=== PATIENT | male | born 1995 | race Asian ===

== ENCOUNTER 2022-04-29 12:31 | Inpatient (IN) ==
[2022-04-29 14:22] LABS: Hematocrit (blood only) 48.6 % (40.1-51.0); Mean Corpuscular Hemoglobin 29.6 pg (25.0-34.0); Mean Corpuscular Hgb Conc 35.1 g/dL (32.0-36.0); Mean Corpuscular Volume 84.5 fL (80.0-100.0); Mean Platelet Volume 10.3 fL (9.4-12.4); Platelet Count 246 K/uL (130-400); RDW Coefficient of Variation 12.6 % (11.5-14.5); RDW Standard Deviation 38.4 fL (36.4-46.3); Red Blood Count 5.75 M/uL (4.63-6.08); White Blood Count 14.28 K/ul (4.8-10.8)
[2022-04-29 14:23] LABS: Basophils # (auto) 0.11 K/uL (0-0.2); Basophils % (auto) 0.8 %; Eosinophils % (auto) 0.7 %; Immature Granulocytes # (auto) 0.09 K/uL (0.00-0.02); Immature Granulocytes % (auto) 0.6 %; Lymphocytes # (auto) 1.24 K/uL (1.2-3.4); Lymphocytes % (auto) 8.7 %; Monocytes # (auto) 0.82 K/uL (0.24-0.82); Monocytes % (auto) 5.7 %; Neutrophils # (auto) 11.92 K/uL (1.4-6.5); Neutrophils % (auto) 83.5 %
[2022-04-29 14:34] LABS: Carbon Dioxide 22 mmol/L (21-32)
[2022-04-29 14:51] LABS: Alanine Aminotransferase 174 U/L (7-52); Albumin Globulin Ratio 1.4 (0.9-2); Alkaline Phosphatase 68 U/L (34-104); Aspartate Aminotransferase 52 U/L (13-39); BUN Creatinine Ratio 15.4 (10-20); Bilirubin,Total 1.4 mg/dl (0.2-1.0); Blood Urea Nitrogen 10 mg/dl (6-23); Calcium 9.7 mg/dl (8.5-10.1); Chloride 104 mmol/L (98-107); Creatinine Clr Calc Pharmacy 170.7 ml/min; Est GFR (African American) > 150.0 ml/min; Est GFR (Non-African American) 133.3 ml/min; Globulin 3.5 gm/dl (2.5-4.0); Glucose 108 mg/dl (70-99(Fasting)); Lipase 310 U/L (11-82); Potassium 3.8 mmol/L (3.5-5.1); Sodium 138 mmol/L (136-145); Total Protein 8.5 gm/dl (6.0-8.3)
[2022-04-29] MEDS ORDERED: ONDANSETRON INJ 2 MG/ML 2 ML VIAL IV STA (16:01)
[2022-04-29] MEDS ORDERED: MoRPHine SULFATE 4 MG/ML 1 ML CARP\\VIAL IV STA (16:01)
[2022-04-29] MEDS ORDERED: SODIUM CHLORIDE 0.9% 1000ML 2,000 ML IV ONE (16:01)
[2022-04-29 16:45] LABS: Anion Gap 1.4 (3-11)
--- NOTE | 2022-04-29 16:52 | Ultrasound Report ---
US gallbladder HISTORY: 26 years-old Male ruq epigastric pain . Acute right upper quadrant abdominal pain COMPARISON: None TECHNIQUE: Multiple real-time sonographic images of the abdominal right upper quadrant were obtained assessing grayscale appearance and color flow FINDINGS: The visualized pancreas is unremarkable. The liver measures up to 18.1 cm in length and demonstrates increased echogenicity without hepatic mass or marginal nodularity. Normal common bile duct measures 4 mm. Gallbladder sludge without shadowing cholelithiasis, wall thickening or pericholecystic fluid. Negative sonographic Correia's sign. The imaged right kidney is unremarkable without hydronephrosis. IMPRESSION: 1. Gallbladder sludge without cholelithiasis or sonographic evidence of acute cholecystitis. 2. No biliary ductal dilation. 3. Mildly increased echogenicity of the liver may be technical or represent mild hepatic steatosis. ACT 112: Negative or not required by law. The above report was generated using voice recognition software. It may contain grammatical, syntax o r spelling errors. Electronically signed by: Baudilio Shea M.D. 04/29/2022 4:51 PM
--- NOTE | 2022-04-29 17:19 | XRay Report ---
XR abdomen 2V w PA chest HISTORY: 26 years-old Male ruq epigastric pain . Right upper quadrant abdominal pain COMPARISON: Gallbladder ultrasound of same day TECHNIQUE: PA view of the chest with erect and supine views of the abdomen FINDINGS: Cardiomediastinal and hilar silhouettes are within normal limits. No pneumothorax, pleural effusion, airspace consolidation or overt pulmonary edema. Bones of the chest appear grossly intact. No pneumatosis or pneumoperitoneum. Bowel gas pattern is nonobstructive. There is mild gaseous disten tion of the large bowel. No urolith identified. No acute fracture. IMPRESSION: 1. No acute processes of the chest. 2. Nonobstructive bowel gas pattern. 3. Mild gaseous distention of the colon. ACT 112: Negative or not required by law. The above report was generated using voice recognition software. It may contain grammatical, syntax o r spelling errors. Electronically signed by: Baudilio Shea M.D. 04/29/2022 5:18 PM
--- NOTE | 2022-04-29 17:47 | History & Physical Report ---
Date of Service April 29, 2022 Assessment & Plan (1) Pancreatitis: Plan: Hypertriglyceride Pancreatitis History of hypertriglyceridemia pancreatitis several years ago - CT-A/P: IMPRESSION: 1. Fat stranding and pancreatic edema is noted compatible with acute pancreatitis. 2. Borderline prominence of the bladder, correlation for cystitis is recommended. - +Epigastric pain, RUQ pain. No LUQ pain/rebound - Lipase 310 US-GB: 1. Gallbladder sludge without cholelithiasis or sonographic evidence of acute cholecystitis. 2. No biliary ductal dilation. 3. Mildly increased echogenicity of the liver may be technical or represent mild hepatic steatosis. - CXR: naf. Afebrile, RR 18, mildly tachycardic Modified Mo for score 0 points - Sample overtly lipemic on collection. Rerun 2302. Hypertrig pancreatitis: Insulin drip 0.1 units/kg/h, titrate dextrose drip with potassium to prevent hypoglycemia. Triglycerides every 12 hours. Stop IV insulin when triglyceride levels less than 500. If patient does not respond or clinically worsens would require transfer for plasmapheresis. - May titrate insulin up to 0.3units/kg/hr if inadequate respone - BMP q4h Transaminitis, ?2/2 hypertriglyceridemia with steasosis vs stone T bili 1.4, AST 52, ALT 174. ?Hepatic steatosis due to high triglycerides, etio includes choledocholithiasis no CBD dilation is noted on gb above MRCP pending to r/o stone/ductal pathology Hypertriglyceridemia - Hold outpatient fish oil - Recommend gemfibrozil 600mg BID and dietary fat restriction on dc DVT prophylaxis: SCDs, low risk Diet: N.p.o. Disposition: PCU for insulin protocol CODE STATUS: Full code History of Present Illness Primary Care Provider: [facility] Midabdomen/LUQ abdominal pain x1 day. Gradually increasing from /10 and now 8/10. Keanu down improves pain a little, otherwise no remitting factors. No attempted tx. Decreased appetite, not sure if eating makes it worse or not. Takes fish oil for 1 prior episode of pancreatitis ?genetic high rigs >2000 many years ago, was seen in [place] and does not have records. Tx with insulin, did not need plasma exchange at that time. At first was on 'a form of some pain medicine then some triglyceride medicine but I'm not sure the name, stopped it after one month and went to fish oil.' In the last month has not had any change in diet. notes he did have some greasy food (beef meal) a few days ago, but nothing very greasy or out of the ordinary. Does not see a PCP or have blood work. 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 No fevers, has been cold but no chills. Peeing normally no pain. BMs daily, no bleeding or melena. Brown in color, no recent change. No history of gallbladder stones. Denies family history of gallbladder stones, thinks he has a family history of high triglycerides (report he was told this after his prior pancreatitis). Medical History: Reviewed. No medical problems other than high trigs and hx of pancreatitis. Medications: Reviewed Surgical History: Reviewed Allergies: Reviewed Social History:No tobacco or alcohol use. No recreational drug use. No recent alcohol use at all per pt. Code Status: In an emergency decision maker fani bakerer Jamari #[phone]. Full Code Allergies Allergy/AdvReac Type Severity Reaction Status Date / Time pollen extracts Allergy Intermediate ITCHY Verified 04/29/22 17:47 EYES, SNEEZING, CONGESTION Home Medications Medication Instructions Recorded Confirmed Type omega 3-ddr-nbq-fish oil 1,000 mg 1 cap PO DAILY 04/29/22 04/29/22 History (120 mg-180 mg) capsule (Fish Oil) Past Med/Surg History Medical History Hypertriglyceridemia No pertinent family history Pancreatitis Surgical History No pertinent past surgical history Social History Smoking Status: Never smoker Hx Alcohol Use: No Hx Substance Use: No Preferred Language: Lao Communication Ability: Effective Tire Duster Required: No Beliefs That Will Affect Care: None Current Living Situation: Other Feels Safe at Home: Yes Safety Concerns: Feels Safe At This Time Review of Systems Review of Systems: All systems reviewed & are unremarkable except as noted in Subjective Physical Exam Physical Exam: General: A&Ox3. NAD. Cooperative. Skin warm/dry HEENT: Atraumatic, normocephalic. Vision/hearing intact. PERLAA. Pulm: CTAB A&P. -wheezes, -rales, -rhonchi. Symmetrical chest rise. No increased work of breathing. No respiratory distress. Cardiac: RRR, -mrg. Radial pulses intact and symmetrical. Abdominal: RUQ and epigastric TTP. No LUQ TTP. No rebound/guarding. Ext: Warm, dry. 5/5 waredresser strength and ankle dorsi/plantarflexion bilat. Sensation to soft touch intact in hands and feet bilat. Results & Data Results & Data ([facility]) Vital Signs (Past 12 Hours) Vital Signs Temp Pulse Pulse Resp BP BP Pulse Ox 04/29/22 17:09 96 H 18 134/80 96 04/29/22 13:08 36.3 C L 102 H 20 119/74 95 O2 Del Method 04/29/22 17:09 Room Air 04/29/22 13:08 Room Air PG Care Time/CCT Total # of Minutes Spent Total Time Spent with Patient: Total time spent is greater than 50% in coordination of care (as documented) at patient's floor/unit and/or counseling patient: Coding Level of Care Code 36319 Initial Inpt Care Lvl 3 Diagnoses Pancreatitis K85.90 Acute pancreatitis complication: unspecified Chronicity: acute Pancreatitis type: unspecified pancreatitis type (1) Pancreatitis Acute pancreatitis complication: unspecified Chronicity: acute Pancreatitis type: unspecified pancreatitis type Qualified Code(s): K85.90 - Acute pancreatitis without necrosis or infection, unspecified
--- NOTE | 2022-04-29 17:59 | Emergency Department Note ---
History of Present Illness General Chief Complaint: Abdominal Pain Stated Complaint: ABDOMINAL PAIN Time Seen by Provider: 04/29/22 16:01 History of Present Illness Provider Complaint: abdominal pain Onset (ago): 1 day(s) Pain Consistency: constant Location: epigastric Radiation: RUQ Severity: moderate Maximum Pain Intensity: 7 Current Pain Intensity: 7 Quality: + stabbing and + sharp Relieved By: + nothing Exacerbated By: + nothing Context: + history of similar episodes (Patient reports history of pancreatitis. Patient states he was diagnosed with pancreatitis in [place]. He states they thought the cause of the pancreatitis was his elevated triglycerides.); no foreign travel, no possible food poisoning, no sick contacts, no recent antibiotic use, no recent surgery/procedure or no recent injury Associated Symptoms: + nausea and + vomiting; no diarrhea, no fever, no chills, no constipation, no dysuria, no hematemesis, no hematochezia, no melena, no hematuria, no anorexia, no syncope, no headache, no neck pain, no back pain, no chest pain and no weakness Home Medications Medication Instructions Recorded Confirmed Type omega 6-ibn-xqt-fish oil 1,000 mg 1 cap PO DAILY 04/29/22 04/29/22 History (120 mg-180 mg) capsule (Fish Oil) Allergies Allergy/AdvReac Type Severity Reaction Status Date / Time pollen extracts Allergy Intermediate ITCHY Verified 04/29/22 17:47 EYES, SNEEZING, CONGESTION Past Med/Surg History Medical History Hypertriglyceridemia No pertinent family history Pancreatitis Surgical History No pertinent past surgical history Social History Smoking Status: Never smoker Hx Alcohol Use: No Hx Substance Use: No Preferred Language: Jamaican Communication Ability: Effective Soft Tile Setter Required: No Beliefs That Will Affect Care: None Current Living Situation: Other Feels Safe at Home: Yes Safety Concerns: Feels Safe At This Time Review of Systems A total of 10 systems reviewed and were otherwise negative Physical Exam Vital Signs: Vital Signs - 24 hr 04/29/22 13:08 04/29/22 17:09 04/29/22 18:46 Temperature 36.3 C L Temperature Source Temporal Artery Sc an Pulse Rate 102 H Pulse Rate [Apical ] 96 H 93 H Respiratory Rate 20 18 20 Respiratory Effort / Characteristics Non-Labored Non-Labored Respiratory Depth Normal Normal Blood Pressure 119/74 Blood Pressure [Ri ght Arm] 134/80 121/78 Blood Pressure Bonita n 89 Blood Pressure Bonita n [Right Arm] 98 92 Pulse Oximetry 95 96 98 Oxygen Delivery Me thod Room Air Room Air Room Air Sepsis Recent Feve r Within 48 Hours No Sepsis New/Unexpla ined Change in Men mario alberto Status N/A Sepsis Action Take n by Nursing No Action Required Physical Exam: Physical Exam GENERAL: He is oriented to person, place, and time. He appears well-developed and well-nourished. He does not appear distressed. HENT: Exam performed. - Head: Normocephalic and atraumatic. - Right Ear: External ear normal. No mastoid tenderness. - Left Ear: External ear normal. No mastoid tenderness. - Mouth/Throat: The oropharynx is clear and moist. No trismus in the jaw. No dental abscesses or uvula swelling. No oropharyngeal exudate or tonsillar abscesses. EYES: Conjunctivae and EOM are normal. Pupils are equal, round, and reactive to light. Right eye exhibits no discharge. Left eye exhibits no discharge. No scleral icterus. NECK: Normal range of motion. Neck supple. No JVD present. No spinous process tenderness present. No carotid bruit present. No rigidity. No tracheal deviation and normal range of motion present. No Brudzinski's sign and no Kernig's sign noted. CV: Normal rate, regular rhythm, normal heart sounds and intact distal pulses. There is no peripheral edema. Palpable radial pulses bue. PULM/CHEST: Effort normal and breath sounds normal. No respiratory distress. No stridor. He has no wheezes. He has no rales. - Chest Wall: He exhibits no tenderness. ABD: The abdomen is soft. Bowel sounds are normal. He has no distension. No mass is present. There is tenderness to palpation of the epigastric and right upper quadrant area. There is no rebound, no guarding, no Correia's sign and no tenderness at McBurney's point. Rovsig negative. MUSC/SKEL: Normal range of motion. There is no peripheral edema, tenderness or deformity. LYMPH: No cervical adenopathy. NEURO: He is alert and oriented to person, place, and time. He has normal strength. No cranial nerve deficit or sensory deficit. Coordination and gait normal. GCS eye subscore is 4. GCS verbal subscore is 5. GCS motor subscore is 6. Cerebellar tests wnl. SKIN: Skin is warm and dry. He is not diaphoretic. PSYCH: He has a normal mood and affect. Behavior is normal. Judgment and thought content normal. Course Course 1601: The patient was evaluated in room A4. A complete history and physical exam was performed Cardiac monitoring: An order was placed for continuous cardiac monitoring. The monitor shows a rate of 90 with sinus rhythm 1745: Vital signs stable. Lipase 363. Ultrasound shows no gallstones. [facility]. Triglyceride levels are still pending. Administered Medications Insulin Human Regular 250 (units/ Sodium Chloride) 250 mls @ 8.16 mls/hr IV .Q24H [facility]; Protocol Stop: 05/29/22 20:29 Last Admin: 04/29/22 20:56 Dose: 0.1 units/kg/hr, 8.2 mls/hr Documented By: [facility] Co-signed By: CITLALY Potassium Chloride/Dextrose/Sod Cl (D5nss + 20meq Kcl) 20 meq in 1,000 mls @ 75 mls/hr IV .[id number] [facility]; Protocol Stop: 05/29/22 20:29 Last Admin: 04/29/22 20:44 Dose: 75 mls/hr Documented By: [facility] Morphine Sulfate (Morphine Sulfate 4 Mg/Ml 1 Ml Carp\Vial) 4 mg IV Q4H PRN PRN Reason: Severe Pain (7,8,9,10) on NRS Stop: 05/13/22 20:02 Last Admin: 04/29/22 20:21 Dose: 4 mg Documented By: [facility] Discontinued Medications Sodium Chloride (Nss 1000ml) 2,000 mls @ 999 mls/hr IV .Q2H1M ONE Stop: 04/29/22 18:01 Last Infusion: 04/29/22 18:55 Dose: 0 mls/hr Documented By: LUZ MARINA Admin: 04/29/22 17:10 Dose: 999 mls/hr Documented By: ANGELINA Lactated Ringer's (Lr) 1,000 mls @ 200 mls/hr IV .Q5H [facility] Stop: 04/30/22 04:14 Last Infusion: 04/29/22 19:00 Dose: 0 mls/hr Documented By: Admin: 04/29/22 18:23 Dose: 200 mls/hr Documented By: LUZ MARINA Influenza Virus Vaccine Quadrival (Fluarix Quadrivalent 0.5 Ml Syr) 0.5 ml IM .ONCE ONE Stop: 04/29/22 20:21 Last Admin: 04/29/22 22:05 Dose: 0.5 ml Documented By: MCKENZIE Ioversol (Ioversol 350 Mg 100ml Prefilled Syringe) 90 ml IV ONCE ONE Stop: 04/29/22 18:08 Last Admin: 04/29/22 18:11 Dose: 90 ml Documented By: ANT Morphine Sulfate (Morphine Sulfate 4 Mg/Ml 1 Ml Carp\Vial) 4 mg IV NOW STA Stop: 04/29/22 16:02 Last Admin: 04/29/22 17:10 Dose: 4 mg Documented By: ANGELINA Ondansetron HCl (Ondansetron Inj 2 Mg/Ml 2 Ml Vial) 4 mg IV NOW STA Stop: 04/29/22 16:02 Last Admin: 04/29/22 17:11 Dose: 4 mg Documented By: ANGELINA Medical Decision Making Laboratory Data Result diagrams: 04/29/22 13:30 04/29/22 13:30 Lab Results 04/29/22 04/29/22 04/29/22 Range/Units 13:30 13:30 17:43 WBC 14.28 H (4.8-10.8) K/ul RBC 5.75 (4.63-6.08) M/uL Hgb 17.0 (14.0-18.0) g/dl Hct 48.6 (40.1-51.0) % MCV 84.5 (80.0-100.0) fL MCH 29.6 (25.0-34.0) pg MCHC 35.1 (32.0-36.0) g/dL RDW Std Deviation 38.4 (36.4-46.3) fL RDW Coeff of Donell 12.6 (11.5-14.5) % Plt Count 246 (130-400) K/uL MPV 10.3 (9.4-12.4) fL Immature Gran % (Auto) 0.6 % Neut % (Auto) 83.5 % Lymph % (Auto) 8.7 % Haines % (Auto) 5.7 % Eos % (Auto) 0.7 % Baso % (Auto) 0.8 % Neut # (Auto) 11.92 H (1.4-6.5) K/uL Lymph # (Auto) 1.24 (1.2-3.4) K/uL Haines # (Auto) 0.82 (0.24-0.82) K/uL Eos # (Auto) 0.10 (0-0.50) K/uL Baso # (Auto) 0.11 (0-0.2) K/uL Immature Gran # (Auto) 0.09 H (0.00-0.02) K/uL Absolute Nucleated RBC 0.00 (0-0) K/uL Nucleated RBC % (auto) 0.0 % VBG pH (7.36-7.41) VBG pCO2 (38-50) mmHg VBG pO2 mmHg VBG HCO3 mmol/L VBG O2 Saturation % VBG Base Excess mEq/L Sodium 138 (136-145) mmol/L Potassium 3.8 (3.5-5.1) mmol/L Chloride 104 (98-107) mmol/L Carbon Dioxide 22 (21-32) mmol/L Anion Gap 1.4 L (3-11) BUN 10 (6-23) mg/dl Creatinine 0.65 (0.6-1.4) mg/dl Est Cr Clr Drug Dosing 170.7 ml/min Est GFR ( Amer) > 150.0 ml/min Est GFR (Non-Af Amer) 133.3 ml/min BUN/Creatinine Ratio 15.4 (10-20) Glucose 108 H (70-99(Fasting)) mg/dl Calcium 9.7 (8.5-10.1) mg/dl Total Bilirubin 1.4 H (0.2-1.0) mg/dl AST 52 H (13-39) U/L ALT 174 H (7-52) U/L Alkaline Phosphatase 68 (34-104) U/L Total Protein 8.5 H (6.0-8.3) gm/dl Albumin 5.0 (3.4-5.0) gm/dl Globulin 3.5 (2.5-4.0) gm/dl Albumin/Globulin Ratio 1.4 (0.9-2) Triglycerides 2302 H (0-150) mg/dl Cholesterol 273 H (0-200) mg/dl LDL Cholesterol, Calc TNP VLDL Cholesterol, Calc TNP HDL Cholesterol 22 mg/dl Cholesterol/HDL Ratio 12.4 H (0-5) Lipase 310 H (11-82) U/L SARS-CoV-2, RNA, NAAT (NEGATIVE) 04/29/22 04/29/22 Range/Units 17:48 18:20 WBC (4.8-10.8) K/ul RBC (4.63-6.08) M/uL Hgb (14.0-18.0) g/dl Hct (40.1-51.0) % MCV (80.0-100.0) fL MCH (25.0-34.0) pg MCHC (32.0-36.0) g/dL RDW Std Deviation (36.4-46.3) fL RDW Coeff of Donell (11.5-14.5) % Plt Count (130-400) K/uL MPV (9.4-12.4) fL Immature Gran % (Auto) % Neut % (Auto) % Lymph % (Auto) % Haines % (Auto) % Eos % (Auto) % Baso % (Auto) % Neut # (Auto) (1.4-6.5) K/uL Lymph # (Auto) (1.2-3.4) K/uL Haines # (Auto) (0.24-0.82) K/uL Eos # (Auto) (0-0.50) K/uL Baso # (Auto) (0-0.2) K/uL Immature Gran # (Auto) (0.00-0.02) K/uL Absolute Nucleated RBC (0-0) K/uL Nucleated RBC % (auto) % VBG pH 7.33 L (7.36-7.41) VBG pCO2 48 (38-50) mmHg VBG pO2 38 mmHg VBG HCO3 25 mmol/L VBG O2 Saturation 67.4 % VBG Base Excess -1.1 mEq/L Sodium (136-145) mmol/L Potassium (3.5-5.1) mmol/L Chloride (98-107) mmol/L Carbon Dioxide (21-32) mmol/L Anion Gap (3-11) BUN (6-23) mg/dl Creatinine (0.6-1.4) mg/dl Est Cr Clr Drug Dosing ml/min Est GFR ( Amer) ml/min Est GFR (Non-Af Amer) ml/min BUN/Creatinine Ratio (10-20) Glucose (70-99(Fasting)) mg/dl Calcium (8.5-10.1) mg/dl Total Bilirubin (0.2-1.0) mg/dl AST (13-39) U/L ALT (7-52) U/L Alkaline Phosphatase (34-104) U/L Total Protein (6.0-8.3) gm/dl Albumin (3.4-5.0) gm/dl Globulin (2.5-4.0) gm/dl Albumin/Globulin Ratio (0.9-2) Triglycerides (0-150) mg/dl Cholesterol (0-200) mg/dl LDL Cholesterol, Calc VLDL Cholesterol, Calc HDL Cholesterol mg/dl Cholesterol/HDL Ratio (0-5) Lipase (11-82) U/L SARS-CoV-2, RNA, NAAT NEGATIVE (NEGATIVE) Imaging Data Radiologist's Impression: Gallbladder Ultrasound 04/29/22 16:08 US gallbladder HISTORY: 26 years-old Male ruq epigastric pain . Acute right upper quadrant abdominal pain COMPARISON: None TECHNIQUE: Multiple real-time sonographic images of the abdominal right upper quadrant were obtained assessing grayscale appearance and color flow FINDINGS: The visualized pancreas is unremarkable. The liver measures up to 18.1 cm in length and demonstrates increased echogenicity without hepatic mass or marginal nodularity. Normal common bile duct measures 4 mm. Gallbladder sludge without shadowing cholelithiasis, wall thickening or pericholecystic fluid. Negative sonographic Correia's sign. The imaged right kidney is unremarkable without hydronephrosis. IMPRESSION: 1. Gallbladder sludge without cholelithiasis or sonographic evidence of acute cholecystitis. 2. No biliary ductal dilation. 3. Mildly increased echogenicity of the liver may be technical or represent mild hepatic steatosis. ACT 112: Negative or not required by law. The above report was generated using voice recognition software. It may contain grammatical, syntax or spelling errors. Electronically signed by: Baudilio Shea M.D. 04/29/2022 4:51 PM Chest/Abdomen X-ray 04/29/22 16:09 XR abdomen 2V w PA chest HISTORY: 26 years-old Male ruq epigastric pain . Right upper quadrant abdominal pain COMPARISON: Gallbladder ultrasound of same day TECHNIQUE: PA view of the chest with erect and supine views of the abdomen FINDINGS: Cardiomediastinal and hilar silhouettes are within normal limits. No pneumothorax, pleural effusion, airspace consolidation or overt pulmonary edema. Bones of the chest appear grossly intact. No pneumatosis or pneumoperitoneum. Bowel gas pattern is nonobstructive. There is mild gaseous distention of the large bowel. No urolith identified. No acute fracture. IMPRESSION: 1. No acute processes of the chest. 2. Nonobstructive bowel gas pattern. 3. Mild gaseous distention of the colon. ACT 112: Negative or not required by law. The above report was generated using voice recognition software. It may contain grammatical, syntax or spelling errors. Electronically signed by: Baudilio Shea M.D. 04/29/2022 5:18 PM MDM Narrative Vital signs stable. Lipase 363. Ultrasound shows no gallstones. Patient will be admitted to [facility] Dr. Harris. Triglyceride levels are still pending. Impression & Plan Pancreatitis, Hypertriglyceridemia Discharge Plan Visit Data Chief Complaint: Abdominal Pain Stated Complaint: ABDOMINAL PAIN ED Provider: Delmer Felipe Discharge Problem: Pancreatitis, Hypertriglyceridemia Patient Disposition: Admitted As Inpatient Discharge Instructions Interventions: ED Discharge Assessment Last Done: 04/29/22 19:51
[2022-04-29] MEDS ORDERED: IOVERSOL 350 MG 100mL Prefilled Syringe IV ONE (18:07)
[2022-04-29] MEDS ORDERED: LACTATED RINGER'S 1,000 ML IV SCH (18:15)
--- NOTE | 2022-04-29 18:34 | CT Scan Report ---
CT abd pelvis IV con only CLINICAL HISTORY: ?trig pancreatitis TECHNIQUE: Helical axial images of the abdomen and pelvis were obtained and displayed. Automated dose lowering techniques and/or adjustment according to patient size were utilized for this exam. This e xam was performed with intravenous contrast. CT DOSE: 328.42 mGy.cm COMPARISON: Comparison is made to chest radiograph 04/29/2022 FINDINGS: Lower chest: Bibasilar atelectasis versus scarring is seen. Liver: Unremarkable. No focal lesions are seen. Gallbladder and biliary tree: No calcified gallstones. Normal caliber wall. No intra- or extrahepatic biliary ductal dilation. Pancreas: Peripancreatic fluid stranding is seen most prominently about the head. There is suggestion of pancreatic edema. Spleen: Unremarkable. Adrenals: Unremarkable. Kidneys and ureters: Subcentimeter hypodensities are too small to characterize. Bladder: Minimal homogeneous wall thickening is seen. Reproductive organs: Prostatomegaly is seen. Bowel: Unremarkable. Lymph nodes Retroperitoneal: Unremarkable. Pelvic: Unremarkable. Mesenteric: Unremarkable. Peritoneum: Free fluid and fat stranding is seen most prominently about the pancreatic head. Vessels: Unremarkable. Abdominal wall: Unremarkable. Bones: Unremarkable. IMPRESSION: 1. Fat stranding and pancreatic edema is noted compatible with acute pancreatitis. 2. Borderline prominence of the bladder, correlation for cystitis is recommended. ACT 112: Negative or not required by law. Electronically signed by: Magdaleno Higgins M.D. 04/29/2022 6:32 PM
[2022-04-29 18:41] LABS: Base Excess VBG -1.1 mEq/L; HCO3 VBG 25 mmol/L; Oxygen Saturation VBG 67.4 %; PCO2 VBG 48 mmHg (38-50); PO2 VBG 38 mmHg; pH VBG 7.33 (7.36-7.41)
[2022-04-29 19:04] LABS: Chol HDL Ratio 12.4 (0-5); Cholesterol 273 mg/dl (0-200); HDL Cholesterol 22 mg/dl; Triglycerides 2302 mg/dl (0-150)
[2022-04-29] MEDS ORDERED: ONDANSETRON INJ 2 MG/ML 2 ML VIAL IV PRN (20:03)
[2022-04-29] MEDS ORDERED: MoRPHine SULFATE 4 MG/ML 1 ML CARP\\VIAL IV PRN (20:03)
[2022-04-29] MEDS ORDERED: ACETAMINOPHEN 325 MG TAB PO PRN (20:03)
[2022-04-29] MEDS ORDERED: MoRPHine SULFATE 2 MG/ML CARP IV PRN (20:03)
[2022-04-29] MEDS ORDERED: FLUARIX QUADRIVALENT 0.5 ML SYR IM ONE (20:20)
[2022-04-29] MEDS ORDERED: INSULIN REGULAR 250 UNITS in SODIUM CHLORIDE 0.9% 247.5 ML IV SCH (20:30)
[2022-04-29] MEDS: D5NSS + 20MEQ KCL 20 MEQ/1,000 ML BAG IV SCH (20:44)
[2022-04-30 01:15] LABS: BUN Creatinine Ratio 9.7 (10-20); Blood Urea Nitrogen 7 mg/dl (6-23); Carbon Dioxide 27 mmol/L (21-32); Chloride 105 mmol/L (98-107); Creatinine Clr Calc Pharmacy 154.1 ml/min; Est GFR (African American) 148.2 ml/min; Est GFR (Non-African American) 127.8 ml/min; Glucose 88 mg/dl (70-99(Fasting))
[2022-04-30] MEDS: DEXTROSE 50% 50 ML SYRINGE IV PRN ×2 (02:19→12:12)
[2022-04-30 03:14] LABS: BUN Creatinine Ratio 11.1 (10-20); Calcium 9.2 mg/dl (8.5-10.1); Creatinine Clr Calc Pharmacy 154.1 ml/min; Est GFR (African American) 148.2 ml/min; Est GFR (Non-African American) 127.8 ml/min; Potassium 3.5 mmol/L (3.5-5.1)
[2022-04-30] MEDS ORDERED: D5W AND NSS 1,000 ML IV SCH (03:30)
[2022-04-30] MEDS: DEXTROSE 10% 1,000 ML IV SCH ×2 (05:21→13:33)
[2022-04-30] MEDS: D5NSS + 20MEQ KCL 20 MEQ/1,000 ML BAG IV SCH ×2 (05:22→13:32)
[2022-04-30 06:16] LABS: Basophils # (auto) 0.06 K/uL (0-0.2); Basophils % (auto) 0.5 %; Eosinophils # (auto) 0.22 K/uL (0-0.50); Eosinophils % (auto) 1.7 %; Hematocrit (blood only) 41.9 % (40.1-51.0); Hemoglobin 14.9 g/dl (14.0-18.0); Immature Granulocytes # (auto) 0.07 K/uL (0.00-0.02); Immature Granulocytes % (auto) 0.6 %; Lymphocytes # (auto) 2.26 K/uL (1.2-3.4); Mean Corpuscular Hemoglobin 30.1 pg (25.0-34.0); Mean Corpuscular Hgb Conc 35.6 g/dL (32.0-36.0); Mean Corpuscular Volume 84.6 fL (80.0-100.0); Mean Platelet Volume 11.2 fL (9.4-12.4); Monocytes # (auto) 0.62 K/uL (0.24-0.82); Monocytes % (auto) 4.9 %; Neutrophils # (auto) 9.36 K/uL (1.4-6.5); Neutrophils % (auto) 74.3 %; Platelet Count 209 K/uL (130-400); RDW Coefficient of Variation 12.9 % (11.5-14.5); RDW Standard Deviation 39.1 fL (36.4-46.3); Red Blood Count 4.95 M/uL (4.63-6.08); White Blood Count 12.59 K/ul (4.8-10.8)
--- NOTE | 2022-04-30 07:17 | Magnetic Resonance Report ---
MRCP CLINICAL HISTORY: Hypertriglyceride pancreatitis. Elevated bilirubin/LFTs. Evaluate for stone. TECHNIQUE: Utilizing a 1.5 Gaviota magnet and dedicated coil, multiplanar, multiecho imaging of the [facility] er abdomen was performed utilizing heavily T2 weighted pulsing sequences without IV contrast. COMPARISON STUDY: Right upper quadrant ultrasound and CT of the abdomen and pelvis April 29, 2022. FINDINGS: There is no intra or extrahepatic biliary ductal dilatation. The common bile measures 4 mm in caliber. No common bile duct calculi are identified although sensitivity for detection of small ca lculi is diminished given motion artifact on the 3-D MRCP sequence. No gallstones are identified with in the gallbladder. There is no gallbladder wall thickening. No pericholecystic fluid is present. The pancreatic head and uncinate process are edematous. There is moderate peripancreatic fluid extending into the right anterior pararenal space. There is no pancreatic ductal dilatation. No peripancreatic fluid collections are present. No hepatic lesions are present. Unenhanced images of the spleen, adre nal glands and kidneys are unremarkable. There is no hydronephrosis. Caliber of visualized small and large bowel are normal. There is no abdominal lymphadenopathy. IMPRESSION: 1. Findings consistent with acute pancreatitis. Edematous pancreatic head and uncinate process with m oderate peripancreatic fluid extending into the right anterior pararenal space. 2. No biliary ductal dilatation. No common bile duct calculi identified although sensitivity for dete ction of small calculi diminished on this exam. 3. No gallstones identified. No gallbladder wall thickening or pericholecystic fluid. ACT 112: Negative or not required by law. Electronically signed by: Omer Gil M.D. 04/30/2022 7:15 AM
[2022-04-30 07:33] LABS: BUN Creatinine Ratio 9.9 (10-20); Bilirubin Direct 0.2 mg/dl (0-0.2); Calcium 8.9 mg/dl (8.5-10.1); Creatinine Clr Calc Pharmacy 156.3 ml/min; Est GFR (Non-African American) 128.6 ml/min; Potassium 3.3 mmol/L (3.5-5.1); Total Protein 6.6 gm/dl (6.0-8.3)
[2022-04-30] MEDS ORDERED: POTASSIUM CHLORIDE CRTAB 20 MEQ TABCR PO STA (08:34)
[2022-04-30 10:46] LABS: Anion Gap 5 (3-11); BUN Creatinine Ratio 7.2 (10-20); Blood Urea Nitrogen 6 mg/dl (6-23); Calcium 8.3 mg/dl (8.5-10.1); Carbon Dioxide 28 mmol/L (21-32); Chloride 105 mmol/L (98-107); Creatinine Clr Calc Pharmacy 133.7 ml/min; Est GFR (African American) 139.8 ml/min; Est GFR (Non-African American) 120.6 ml/min; Glucose 82 mg/dl (70-99(Fasting)); Sodium 138 mmol/L (136-145)
--- NOTE | 2022-04-30 11:13 | Hospitalist Progress Note ---
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 Fat stranding and pancreatic edema is noted compatible with acute pancreatitis. Lipase not significantly elevated. Sample overtly lipemic on collection. Rerun 2302. HTG pancreatitis: Continue Insulin drip 0.1 units/kg/h, titrate dextrose drip with potassium to prevent hypoglycemia. Repeat TG this AM 804, repeat again in 8 hours. Once TG <500 can stop insulin gtt. Continue NPO status and IVF Will re-evaluate this afternoon, if TG <500 and pain improved, will consider starting clear liquids Transaminitis, ?2/2 hypertriglyceridemia with steatosis LFTs essentially stable this morning w/o significant change MRCP w/o findings of gallstones, CBD dilatation, or stones in the duct Hypertriglyceridemia Hold outpatient fish oil Recommend gemfibrozil 600mg BID and dietary fat restriction on dc Plan As above, plan d/w Dr. Gallegos. Admission and Anticipated Discharge Date Admission Date: April 29, 2022 Subjective Patient seen on daily rounds this morning. Admitted 04/29 for hypotriglyceridemia induced pancreatitis. He is currently resting in bed, reports mild epigastric abd pain and rates it a 4/10. No nausea or vomiting. Denies fever/chills, cp, or dyspnea. Review of Systems Review of Systems: All systems reviewed and are unremarkable except as noted in HPI and below. Denies fever, chills, fatigue, headache, nasal congestion, sore throat, cough, chest pain, shortness of breath, palpitations, orthopnea, PND, n/v/d, constipation, dysuria, hematuria, frequency, back pain, joint pain or swelling, easy bruising or bleeding, skin lesions or rashes. Physical Exam Physical Exam: GENERAL: 26 yo Well-developed, well-nourished M. Appears ill but nontoxic, NAD. LUNGS: Clear to auscultation bilaterally. No W/R/R. CARDIOVASCULAR: Regular rate and rhythm. ABDOMEN: Soft, nondistended, mild ttp in epigastrium and LUQ. No rebound tenderness or guarding. BS normoactive x 4 quad. EXTREMITIES: No edema. Non-tender. Peripheral pulses +2/4. NEUROLOGIC: A&O x3. Nonfocal PSYCHIATRIC: Cooperative. Appropriate mood and affect. SKIN: Warm, dry, intact. No rashes or lesions. Results & Data Results & Data ([facility]) Vital Signs (Past 12 Hours) Vital Signs Temp Pulse Pulse Resp BP Pulse Ox O2 Del Method 04/30/22 07:44 37.1 C 96 H 20 117/74 96 Room Air 04/30/22 03:00 37.4 C 93 H 20 103/59 L 96 Room Air 04/29/22 23:43 99 H Laboratory Results 04/30/22 05:31 TG= 2302 --> 804 PG Care Time/CCT Total # of Minutes Spent Total Time Spent with Patient: Total time spent is greater than 50% in coordination of care (as documented) at patient's floor/unit and/or counseling patient: Coding Level of Care Code 28629 Subseq Hosp Care Lvl 2 Diagnoses Pancreatitis K85.90 Acute pancreatitis complication: unspecified Chronicity: acute Pancreatitis type: unspecified pancreatitis type (1) Pancreatitis Acute pancreatitis complication: unspecified Chronicity: acute Pancreatitis type: unspecified pancreatitis type Qualified Code(s): K85.90 - Acute pancreatitis without necrosis or infection, unspecified
[2022-04-30 15:17] LABS: BUN Creatinine Ratio 5.3 (10-20); Calcium 9.4 mg/dl (8.5-10.1); Est GFR (African American) 144.9 ml/min; Potassium 3.6 mmol/L (3.5-5.1)
[2022-04-30] MEDS: LACTATED RINGER'S 1,000 ML IV SCH ×2 (16:44→21:07)
[2022-05-01] MEDS: LACTATED RINGER'S 1,000 ML IV SCH ×2 (04:57→11:09)
[2022-05-01 06:21] LABS: Basophils # (auto) 0.04 K/uL (0-0.2); Basophils % (auto) 0.3 %; Eosinophils # (auto) 0.15 K/uL (0-0.50); Eosinophils % (auto) 1.2 %; Hematocrit (blood only) 43.7 % (40.1-51.0); Hemoglobin 15.3 g/dl (14.0-18.0); Immature Granulocytes # (auto) 0.05 K/uL (0.00-0.02); Immature Granulocytes % (auto) 0.4 %; Lymphocytes # (auto) 2.06 K/uL (1.2-3.4); Lymphocytes % (auto) 17.2 %; Mean Corpuscular Hemoglobin 29.7 pg (25.0-34.0); Mean Corpuscular Volume 84.7 fL (80.0-100.0); Mean Platelet Volume 10.6 fL (9.4-12.4); Monocytes # (auto) 0.72 K/uL (0.24-0.82); Neutrophils # (auto) 8.99 K/uL (1.4-6.5); Neutrophils % (auto) 74.9 %; Platelet Count 191 K/uL (130-400); RDW Coefficient of Variation 12.8 % (11.5-14.5); RDW Standard Deviation 39.9 fL (36.4-46.3); Red Blood Count 5.16 M/uL (4.63-6.08); White Blood Count 12.01 K/ul (4.8-10.8)
[2022-05-01 08:46] LABS: Alanine Aminotransferase 204 U/L (7-52); Albumin Globulin Ratio 1.4 (0.9-2); Albumin Level 4.2 gm/dl (3.4-5.0); Alkaline Phosphatase 76 U/L (34-104); Anion Gap 8 (3-11); Bilirubin,Total 3.7 mg/dl (0.2-1.0); Blood Urea Nitrogen 6 mg/dl (6-23); Calcium 9.2 mg/dl (8.5-10.1); Carbon Dioxide 26 mmol/L (21-32); Chloride 99 mmol/L (98-107); Creatinine Clr Calc Pharmacy 147.9 ml/min; Est GFR (African American) 145.7 ml/min; Est GFR (Non-African American) 125.7 ml/min; Globulin 3.1 gm/dl (2.5-4.0); Glucose 99 mg/dl (70-99(Fasting)); Sodium 133 mmol/L (136-145); Total Protein 7.3 gm/dl (6.0-8.3); Triglycerides 609 mg/dl (0-150)
--- NOTE | 2022-05-01 11:35 | Discharge Summary ---
Date of Service May 01, 2022 Admission HPI Per Admitting Provider Midabdomen/LUQ abdominal pain x1 day. Gradually increasing from 1/10 and now 8/10. Keanu down improves pain a little, otherwise no remitting factors. No attempted tx. Decreased appetite, not sure if eating makes it worse or not. Takes fish oil for 1 prior episode of pancreatitis ?genetic high rigs >2000 many years ago, was seen in [place] and does not have records. Tx with insulin, did not need plasma exchange at that time. At first was on 'a form of some pain medicine then some triglyceride medicine but I'm not sure the name, stopped it after one month and went to fish oil.' In the last month has not had any change in diet. notes he did have some greasy food (beef meal) a few days ago, but nothing very greasy or out of the ordinary. Does not see a PCP or have blood work. 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 No fevers, has been cold but no chills. Peeing normally no pain. BMs daily, no bleeding or melena. Brown in color, no recent change. No history of gallbladder stones. Denies family history of gallbladder stones, thinks he has a family history of high triglycerides (report he was told this after his prior pancreatitis). Medical History: Reviewed. No medical problems other than high trigs and hx of pancreatitis. Medications: Reviewed Surgical History: Reviewed Allergies: Reviewed Social History:No tobacco or alcohol use. No recreational drug use. No recent alcohol use at all per pt. Code Status: In an emergency decision maker fani mitchell brother Jamari #[phone]. Full Code Principal Diagnosis 1. Acute hypertriglyceridemia induced pancreatitis 2. Transaminitis Discharge Exam GENERAL: 26 yo Well-developed, well-nourished M. Appears ill but nontoxic, NAD. LUNGS: Clear to auscultation bilaterally. No W/R/R. CARDIOVASCULAR: Regular rate and rhythm. ABDOMEN: Soft, nondistended, mild ttp in epigastrium and LUQ. No rebound tenderness or guarding. BS normoactive x 4 quad. EXTREMITIES: No edema. Non-tender. Peripheral pulses +2/4. NEUROLOGIC: A&O x3. Nonfocal PSYCHIATRIC: Cooperative. Appropriate mood and affect. SKIN: Warm, dry, intact. No rashes or lesions. 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 Fat stranding and pancreatic edema is noted compatible with acute pancreatitis. Lipase not significantly elevated. Sample overtly lipemic on collection. Rerun 2302. HTG pancreatitis: Continue Insulin drip 0.1 units/kg/h, titrate dextrose drip with potassium to prevent hypoglycemia. Repeat TG this AM 804, repeat again in 8 hours. Once TG <500 can stop insulin gtt. Repeat TG level on 04/30 in AM was 804. Repeat in afternoon was 609, and gtt was discontinued. Started on clear liquids and IVF were discontinued. 05/01, pt noted to have tolerated clear liquids, diet advanced to low fat Push hydration, rest, and can return to work/school on Thursday 05/03, excuse provided Follow up with S within 1 week Transaminitis, ?2/2 hypertriglyceridemia with steatosis LFTs essentially stable this morning w/o significant change MRCP w/o findings of gallstones, CBD dilatation, or stones in the duct Outpatient follow up with S - would ideally repeat levels in 1-2 weeks Hypertriglyceridemia Hold outpatient fish oil Recommend gemfibrozil 600mg BID and dietary fat restriction on dc Rx has been provided for Gemfibrozil, pt instructed on importance of compliance with this med + diet modifications Repeat cholesterol panel in 3 mo Plan Patient is medically and hemodynamically stable for discharge home today. Instructed him to follow up with S within 1 week of discharge. Continue taking Gemfibrozil (started here in the hospital on 05/01 in AM). Dietary modification to low fat. Plan d/w Dr. Rivas Gallegos who has also seen and evaluated this patient prior to discharge and agrees with aforementioned. Total Time Total Time Spent Total Time Spent (In Minutes): >30 minutes Discharge Plan Discharge Items Patient Disposition: Home - Self-Care Reason For Visit: HTG PANCREATITIS Discharge Diagnosis: inflammation of your pancreas due to very high triglycerides Activity: Resume your previous activity Non-emergency contact: Primary Care Provider Call non-emergency contact if: you have any medication questions Follow-up/Referrals: [place] [Primary Care Provider] - Diet: Low Fat Addtl Attending Provider Instructions: You were hospitalized due to inflammation in your pancreas (termed pancreatitis) which was causing abdominal pain. This occurred due to significantly elevated triglyceride levels. In order to rapidly correct your elevated triglycerides, you were treated with IV insulin and IV fluids. Thankfully, your triglyceride level improved from the down to 600. With that said, you are still going to require treatment for your elevated triglycerides to ensure that you do not have issues with recurrent pancreatitis in the future. You will need to follow a low fat diet and you have been started on a medication called Gemfibrozil to help lower your triglycerides. It will be very important that you remain compliant with this medication. It will be taken twice a day, once in the morning and once at night. You were given one dose today (05/01), and your next dose is due this evening. A prescription has been sent to your pharmacy on file. I have also included an excuse for you to provide to the [place] if they should need it regarding your absence from classes. We strongly advise that you follow up with [facility] within one week for a hospital follow up. Recommend Liver function tests get rechecked in 1-2 weeks as well as repeat cholesterol levels in 3 months. Push fluids to ensure you remain hydrated. Having a little bit of residual abdominal discomfort is not unexpected but should completely normalized as the inflammation completely resolves. If you have any questions or concerns that cannot be answered by [facility], you may call the nonemergency contact number listed on your discharge paperwork. In the event of a medical emergency, call 911. Pending Studies at Discharge: No Stand-Alone Forms: My [facility] Dopp[facility], Work/School Release, Smoking Cessation Medications and DC Order Prescriptions: New gemfibrozil 600 mg tablet 600 mg PO BID Qty: 60 0RF Discontinued omega 5-[id number]-txr-fish oil [Fish Oil] 1,000 mg (120 mg-180 mg) Capsule 1 cap PO DAILY Discharge Orders: Discharge Order (Routine); Ordered 05/01/22 Ordered By: Merary Bach Admission Data Admit Date/Time: 04/29/22 18:50 Attending Provider: Rivas Gallegos Admit Provider: Omar Taylor Primary Care Provider: [facility] [address] Other Providers: Omar Taylor Other Interventions: Discharge Summary Assessment (RN) Last Done: 05/01/22 15:11 Supervising Physician Co-Signing Physician Notes I supervised Merary Bach PA-C on the care of this patient. I interviewed and examined the patient independently of her. The plan is as written in her note except for any following changes/exceptions: None Doing well today. Tolerating a diet without pain. Will discharge on gemfibrozil to try to lower triglycerides. F/u with [facility] for repeat LFTs. Patient's liver labs are slightly increasing, but clinically feeling much b elisa. Will require close follow-up. Coding Level of Care Code D/C DAY MANAGEMENT >30 MINS Diagnoses Pancreatitis K85.90 Acute pancreatitis complication: unspecified Chronicity: acute Pancreatitis type: unspecified pancreatitis type
[2022-05-01] MEDS ORDERED: gemfibroziL 600 MG TAB PO SCH (11:45)
== END 2022-05-01 15:14 | disposition home or self-care (01) | DRG 440 ==
LOC: ED 12:31 → 2S 18:50 → SUATTDRO 18:50 → 2S 19:51